=== PATIENT | male | born 1990 | race Caucasian/White ===

== ENCOUNTER 2018-01-27 17:29 | Emergency (ER) | payer MEDICAID | END 2018-01-27 20:43 | disposition home or self-care (01) | LOC: D.ER 17:29 | DX: L02.414 Cutaneous abscess of left upper limb (principal) ==

== ENCOUNTER 2018-06-30 17:28 | Emergency (ER) | payer MEDICAID ==
[~2018-06-30] VITALS: Ht 167.6 cm; Wt 61.4 kg
[2018-06-30 18:09] VITALS: Ht 167.6 cm; Wt 61.4 kg
[2018-06-30] MEDS ORDERED: VOLTAREN75 MG PO (22:27)
[2018-06-30] MEDS ORDERED: AUGMENTIN 875-11 TAB PO (22:27)
[2018-06-30 22:40] VITALS: BP 133/59
== END 2018-06-30 22:47 | disposition home or self-care (01) ==
LOC: D.ER 17:28
DX: S61.411A Laceration without foreign body of right hand, initial encounter (principal); Y04.2XXA Assault by strike against or bumped into by another person, initial encounter; Y93.89 Activity, other specified; Y92.89 Other specified places as the place of occurrence of the external cause; F17.200 Nicotine dependence, unspecified, uncomplicated